=== PATIENT | male | born 1960 | race African-American/Black ===

== ENCOUNTER 2017-07-12 06:21 | Day surgery (SDC) | payer OTHER ==
[~2017-07-12] VITALS: Ht 167.6 cm; Wt 71.7 kg
[~2017-07-12 06:21] MED LIST: [UNRECOGNIZED DRUG - REMARK]
[2017-07-12] MEDS ORDERED: STOOL SOFTEN240 MG PO (06:50)
[2017-07-12 10:26] VITALS: BP 142/90
== END 2017-07-12 11:15 | DRG 352 ==
LOC: ORM 06:21
PROVIDERS: ATTEND Surgery
PROC: 0YU50JZ Supplement Right Inguinal Region with Synthetic Substitute, Open Approach (ICD-10-PCS; principal; 2017-07-12)
DX: K40.90 Unilateral inguinal hernia, without obstruction or gangrene, not specified as recurrent (principal)

== ENCOUNTER 2021-03-31 07:00 | Day surgery (SDC) | payer OTHER ==
[~2021-03-31] VITALS: Ht 167.6 cm; Wt 75.7 kg
[~2021-03-31 07:00] MED LIST changes: +EYE IO; +HYDROCHLOROT25 MG PO; +LISINOPRIL20 MG PO; +STOOL SOFTEN240 MG PO
[2021-03-31 08:52] VITALS: BP 169/98
== END 2021-03-31 09:05 | DRG 395 ==
LOC: ENDO 07:00 → ORM 08:00 → ENDO 09:05
PROVIDERS: ATTEND Surgery
PROC: 0DJD8ZZ Inspection of Lower Intestinal Tract, Via Natural or Artificial Opening Endoscopic (ICD-10-PCS; principal; 2021-03-31)
DX: K64.8 Other hemorrhoids (principal); I10 Essential (primary) hypertension